=== PATIENT | female | born 1985 | race Caucasian/White ===

== ENCOUNTER 2018-01-20 13:18 | Observation (INO) ==
[2018-01-20 14:16] LABS: Amphetamine Screen,Urine Negative ng/mL (Cutoff=1000); Barbiturate Screen,Urine Negative ng/mL (Cutoff=200); Benzodiazepines Screen,Urine Negative ng/mL (Cutoff=200); Cannabinoid Screen,Urine Negative ng/mL (Cutoff = 50); Cocaine Screen,Urine Negative ng/mL (Cutoff= 300); Opiate Screen,Urine Negative ng/mL (Cutoff=300); Phencyclidine Screen,Urine Negative ng/mL (Cutoff=25)
[2018-01-20 15:32] LABS: Candida DNA Not Detected (Not Detect); Gardnerella DNA Not Detected (Not Detect); Trichomonas DNA Not Detected (Not Detect)
--- NOTE | 2018-01-20 15:51 | OB/GYN Progress Note ---
Date of Encounter: 01/20/18 Time of Encounter: 15:48 - Assessment and Plan (1) 37 weeks gestation of Current Visit: Yes Status: Acute (2) related nausea, antepartum Current Visit: Yes Status: Acute Patient states nausea somewhat better in triage Vaginosis panel all negative Discharge home with labor and when to return to triage precautions. Patient verbalizes understanding Subjective - Subjective Interval history: 37+4 weeks gestation presents to triage with complaints of nausea. Patient states she is been very nauseous today, but no vomiting and able to keep food and liquids down. Good movement, denies vaginal bleeding, contractions or leaking of fluid. Noted in chart patient was treated for trichomoniasis early in and has not had a test of cure, will obtain today Antepartum ROS: movement normal, no loss of fluid, no vaginal bleeding, no contractions Objective - Vital Signs Vital Signs: Intake and Output 01/19/18 01/20/18 01/20/18 23:59 07:59 15:59 Other: Weight 66.3 kg Patient Weight 01/20/18 23:59 Weight 66.3 kg - Exam FHR: auscultation normal Abdomen: Present: soft, gravid Cervical dilation: 1/high per RN
== END 2018-01-20 16:00 | disposition home or self-care (01) ==
LOC: 1NENULAB
PROVIDERS: ADMIT Advanced Practice Midwife; ATTEND Advanced Practice Midwife

== ENCOUNTER → 2018-01-29 14:37 | Observation (INO) ==
--- NOTE | 2018-01-29 14:22 | OB/GYN Progress Note ---
Date of Encounter: 01/29/18 Time of Encounter: 14:21 - Assessment and Plan (1) Uterine contractions Current Visit: Yes Status: Acute Cervix remains unchanged on serial cervical exams. Discharged home with labor and when to return to triage precautions. Patient verbalizes understanding and is in agreement with plan (2) 38 weeks gestation of Current Visit: No Status: Acute Subjective - Subjective Interval history: 38+6 weeks gestation presents to triage with complaints of contraction. Patient states she has been having contractions off and on on morning. Reports good movement, denies vaginal bleeding or leaking of fluid. Antepartum ROS: movement normal, contractions, no loss of fluid, no vaginal bleeding Objective - Vital Signs Vital Signs: Intake and Output 01/28/18 01/29/18 01/29/18 23:59 07:59 15:59 Other: Weight 67.222 kg Patient Weight 01/29/18 23:59 Weight 67.222 kg - Exam FHR: auscultation normal Abdomen: Present: soft, gravid Cervical dilation: 2 cm/unchanged from previous exams.
[~2018-01-29 14:37] MED LIST: Ringers Solution, Lactated 1,000 ML IVC SCH; Ringers Solution, Lactated 1,000 ML ONE
== END | disposition home or self-care (01) ==
LOC: 1NENULAB
PROVIDERS: ADMIT Obstetrics & Gynecology; ATTEND Obstetrics & Gynecology

== ENCOUNTER 2018-02-06 05:44 | Inpatient (IN) ==
[2018-02-06] MEDS ORDERED: Famotidine 20 MG/2 ML VIAL IVP PRN (06:34)
[2018-02-06] MEDS ORDERED: Ondansetron 4 MG/2 ML VIAL IVP PRN (06:34)
[2018-02-06] MEDS ORDERED: Naloxone 0.4 MG/ML INJ IVP PRN (06:34)
[2018-02-06] MEDS ORDERED: Ringers Solution, Lactated 1,000 ML IVC SCH (06:45)
--- NOTE | 2018-02-06 06:59 | OB/GYN History & Physical ---
Date of Encounter: 02/06/18 Time of Encounter: 06:55 Assessment and Plan (1) 40 weeks gestation of Current visit: Yes Status: Acute Admit to Labor and Delivery for induction of labor Pt does not want epidural or other pain control GBS Negative Augment with PO Cytotec Anticipate with vaginal delivery Antepartum Care with Dr. Brittaney Marcial is the OB elementary instructional coach History of Present Illness Chief complaint: Induction of Labor HPI: Ms. Ford is a 32 year old female who presents at 40 weeks 0 days for induction of labor. Endorses movement, but denies loss of clear fluid or vaginal bleeding. Notes irregular contractions to this point. States during her last , she rarely felt contractions. Denies blurry vision, headache, SOB, chest pain, nausea, dysuria. Denies smoking, alcohol, or drug use. care with Dr. Quispe. Labs: Blood Type: A-positive Rh Status: Negative GBS: Negative Hep B Surf Ag: Negative HIV Ab: Negative Treponema Ab: Negative G/C: Negative Varicella: Non-Immune Rubella: Non-Immune Urine Drug Screen: Negative Past Med Surg Social Fam HX - Past Medical History Attestation: Yes The following information was validated with the patient. Source: patient Medical history: no medical history Psychiatric history: no psych history - Past Surgical History Surgical History: no surgical history - Social History Smoking Status: Former smoker Smokeless Tobacco Status: No Alcohol use: none Drug use: none - Family History Mother Adopted: [place]: Anjana Ford Age: 59 Family Member Ethnicity: Non- Living Status: Still Living Hx Family Cardiac Disorders: No Hx Family Respiratory Disorders: No Hx Family Cancer: No Hx Family GI Disorders: No Hx Family Genitourinary Disorders: No Hx Family Endocrine Disorder: Yes Hx Family Musculoskeletal Disorders: No Hx Family Neuromuscular Disorders: No Hx Family Neurologic Disorders: No Hx Family HEENT Disorders: No Hx Family Autoimmune Disorders: No Hx Family Reproductive Disorders: No Hx Family Psychosocial Disorders: No Obstetrical History - Pregnancies : 2 Para: 1 Term: 1 : 0 Ab's: 0 Livin Medications and Allergies Vitamins 1 tab PO DAILY 01/20/18 [History] 3 Allergy/AdvReac Type Severity Reaction Status Date / Time pseudoephedrine Allergy Hives Verified 01/20/18 13:31 [From Sudafed] Review of System OB All systems PM: reviewed and no additional remarkable complaints except as stated Exam - Vital Signs Vital signs: Vital Signs Stable - Constitutional Constitutional: well developed, well nourished, no acute distress, average body habitus - HEENT HEENT: EOMI, Normocephaly - Neck Neck exam: full ROM - Lungs Respiratory exam: CTAB - Cardiovascular Cardiovascular exam: RRR, +S1, +S2 - Abdomen Abdomen: Present: bowel sounds normal, gravid, non tender - Extremities Extremities exam: full ROM, normal capillary refill, normal inspection, warm, radial pulses palpable and symmetrical Deep Tendon Reflex Grade: 2+ Normal Results Result Diagrams: 02/06/18 07:00 All other labs normal. - VTE Reasons for not Prescribing Prophylaxis: Treatment not Indicated - Low risk for VTE - Attending Attestation Roland Marcial MD , FACOG
[2018-02-06] MEDS: miSOPROStol 100 MCG TABLET PO SCH ×2 (07:25→14:30)
[2018-02-06 07:32] LABS: Basophils % 0.3 %; Eosinophils # 0.1 K/mcL (0.0-0.6); Eosinophils % 1.3 %; Hematocrit 35.2 % (35.3-44.9); Immature Granulocytes % 0.4 % (0-4); Lymphocytes % 19.6 %; Mean Corpuscular HGB Conc 34.1 g/dL (31.6-35.5); Mean Corpuscular Hemoglobin 29.7 pg (28.0-33.3); Mean Corpuscular Volume 87.1 fL (83.0-100.0); Mean Platelet Volume 11.8 fL (9.4-12.4); Monocytes # 0.8 K/mcL (0.0-1.3); Monocytes % 7.9 %; Neutrophils # 7.3 K/mcL (1.6-8.9); Platelet Count 217 K/mcL (140-400); Red Blood Count 4.04 M/mcL (3.82-4.97); Segmented Neutrophils % 70.5 %
[2018-02-06 07:49] LABS: Amphetamine Screen,Urine Negative ng/mL (Cutoff=1000); Barbiturate Screen,Urine Negative ng/mL (Cutoff=200)
[2018-02-06 07:50] LABS: Benzodiazepines Screen,Urine Negative ng/mL (Cutoff=300); Cannabinoid Screen,Urine Negative ng/mL (Cutoff = 50); Cocaine Screen,Urine Negative ng/mL (Cutoff= 300); Opiate Screen,Urine Negative ng/mL (Cutoff=300); Phencyclidine Screen,Urine Negative ng/mL (Cutoff=25)
--- NOTE | 2018-02-06 12:28 | OB Labor Progress Note ---
Date of Encounter: 02/06/18 Time of Encounter: 12:26 Labor Progress Note - Subjective Subjective: Pt mildly uncomfortable with contractions - Cervix Cervix: 1/70/-2 - Heart Tones Heart Tones: FHR Category I - [place]: Contractions q 3-5 minutes - Interventions Interventions: Patterson bulb placed and inflated with 30 ml - Plan Plan: Continue induction management Monitor patterson bulb for release Anticipate
--- NOTE | 2018-02-06 18:02 | OB Labor Progress Note ---
Date of Encounter: 02/06/18 Time of Encounter: 16:10 Labor Progress Note - Subjective Subjective: Patient remains comfortable with contractions - Cervix Cervix: 3/70/-2 - Heart Tones Heart Tones: FHR category I - [place]: Contractions every 3-5 minutes - Interventions Interventions: SVE AROM-clear fluid moderate amount IUPC FSE - Plan Plan: Continue induction management Frequent position changes Anticipate
--- NOTE | 2018-02-06 18:15 | OB Labor Progress Note ---
Date of Encounter: 02/06/18 Time of Encounter: 18:13 Labor Progress Note - Subjective Subjective: Patient reports she is feeling more pressure with contractions - Cervix Cervix: 5/80/-1 - Heart Tones Heart Tones: FHR category I - [place]: Contractions every 2-5 minutes - Interventions Interventions: SVE - Plan Plan: Continue induction management Frequent position changes Anticipate
[2018-02-06] MEDS ORDERED: Oxytocin 20 units/ LR 1000 mL 20 UNIT/1,000 ML BAG IVC SCH (19:30)
--- NOTE | 2018-02-07 01:32 | OB/GYN Procedure Note ---
Delivery - Delivery Date: 02/07/18 Provider: Gale Casas Intrapartum events: meconium Delivery induction: patterson, misoprostol Delivery augmentation: rupture of membranes, pitocin Delivery monitor: external FHT, external uterine, internal FHT, internal uterine Anesthesia: epidural Quantitated Blood Loss: 150 - (s) A Delivery Date: 02/07/18 Infant Delivery Time: 00:52 Presentation: vertex Position: OA Route of delivery: Gender: Male Viability: Viable Pounds: 8 Ounces: 1 Weight Gram: 3.67 kg at 1 minute: 8 at 5 mins: 9 Shoulder Dystocia: not encountered Placenta: spontaneous Cord: 3 umbilical vessels - Repair Episiotomy: none Laceration Description: Periurethral (bilateral hemostatic), Superficial - Complications Delivery complications: none Delivery comments: This is a 32-year-old G2 now P2 who is admitted for elective induction of labor. She progressed with misoprostol, Patterson bulb, AROM, and Pitocin augmentation to the second stage of labor. She pushed for about 30 minutes. She delivered a viable female infant "MILAGROS Thomas over an intact perineum. The was placed on the maternal abdomen where she transitioned spontaneously. The umbilical cord was double clamped by inventory representative and cut by FOB after pulsations had ceased. No nuchal cord was identified. No shoulder dystocia was encountered. scores were 8 at 1 minute and 9 at 5 minutes. The weighed 8 lbs. 1 oz. (3670 g). The placenta delivered (Dash) spontaneously, intact, with a three-vessel cord. Inspection revealed no perineal, sidewall or cervical lacerations. There was a small separation of skin that was repaired with a single stitch with 4-0 Monocryl. The uterus was firm with no active bleeding. The repair was done without anesthesia. EBL was 150 mL. Placenta and umbilical artery blood gases were not sent. There were no complications during the procedure. Mom and baby are skin to skin following delivery. - Disposition Mom disposition: stable in LDR [place] disposition: stable in LDR
[2018-02-07] MEDS ORDERED: Methylergonovine 0.2 MG/ML AMPUL IM ONE ×2 (02:21→02:32)
[2018-02-07] MEDS ORDERED: Acetaminophen 325 MG TABLET PO PRN (03:18)
[2018-02-07] MEDS ORDERED: Oxytocin 20 units/ LR 1000 mL 20 UNIT/1,000 ML BAG IVC SCH (03:18)
[2018-02-07] MEDS ORDERED: Benzocaine/Menthol 56 GM AEROSOL SPRAY TP PRN (03:18)
[2018-02-07] MEDS: Ibuprofen 600 MG TABLET PO PRN (09:43)
[2018-02-07] MEDS: Prenatal Vit/FA 1 EACH TABLET PO SCH (09:44)
[2018-02-08 08:13] VITALS: BP 114/75
[2018-02-08] MEDS: Prenatal Vit/FA 1 EACH TABLET PO SCH (09:15)
[2018-02-08] MEDS: Ibuprofen 600 MG TABLET PO PRN (09:15)
--- NOTE | 2018-02-08 10:17 | Discharge Summary ---
Date of Encounter: 02/08/18 Time of Encounter: 10:14 - Discharge Diagnosis (1) Normal spontaneous vaginal delivery Priority: Primary Status: Acute Comments: Pt seen and examined at bedside; mother and baby resting comfortably Pain well controlled with Motrin Notes mild lochia Ambulating without difficulty Normal appetite Yet to have bowel movement or pass flatus; evidence of bowel sounds Voiding appropriately Plans to feed with formula Will discuss control at follow up with Dr. Quispe Counseled on signs and symptoms of depression Plan to discharge home today - Discharge Medications Prescriptions: Ibuprofen [Motrin] 600 mg PO Q6HR PRN 14 Days #56 tablet PRN Reason: Cramping Docusate [Colace] 100 mg PO BID 14 Days #28 capsule Ferrous Sulfate 325 mg PO DAILY 30 Days #30 tablet Home Medications: Vitamins 1 tab PO DAILY 01/20/18 [History] Docusate [Colace] 100 mg PO BID 14 Days #28 capsule 02/08/18 [Rx] Ferrous Sulfate 325 mg PO DAILY 30 Days #30 tablet 02/08/18 [Rx] Ibuprofen [Motrin] 600 mg PO Q6HR PRN 14 Days #56 tablet 02/08/18 [Rx] Allergies/Adverse Reactions: 3 Allergy/AdvReac Type Severity Reaction Status Date / Time pseudoephedrine Allergy Hives Verified 01/20/18 13:31 [From [facility]] Data Procedures and tests throughout hospitalization: Laboratory Tests 02/06/18 02/06/18 07:00 07:00 WBC 10.3 RBC 4.04 Hgb 12.0 Hct 35.2 L MCV 87.1 MCH 29.7 MCHC 34.1 RDW 14.0 Plt Count 217 MPV 11.8 Immature Gran % 0.4 Seg Neutrophils % 70.5 Lymphocytes % 19.6 Monocytes % 7.9 Eosinophils % 1.3 Basophils % 0.3 Neutrophils # 7.3 Lymphocytes # 2.0 Monocytes # 0.8 Eosinophils # 0.1 Basophils # 0.0 Urine Opiates Screen Negative Ur Barbiturates Screen Negative Ur Phencyclidine Scrn Negative Ur Amphetamines Screen Negative U Benzodiazepines Scrn Negative Urine Cocaine Screen Negative U Marijuana (THC) Screen Negative Ur Drug Screen Interp See Below Date of admission: 02/06/18 05:44 Primary care physician: PCP NONE Consults: 02/07/18 03:18 Consult to Tucking Machine Operator [CONS] Routine Comment: Vaginal delivery, consult needed Discharging clinician: Kady Adams Anticipated date of discharge: 02/08/18 - Patient Status Disposition: Home, Self-Care Condition: Good Functional capacity at discharge: independent ambulation Overall status at discharge: patient is progressing back to baseline - Discharge Instructions Follow Up With: NONE,PCP [Primary Care Provider] - Ashley Lopez [Family Provider] - Jericho Quispe DO [Partnered Physician] - - Diet and Activity Activity: resume usual activities as tolerated Diet: advance to your usual diet Hospital Course Reason for admission: induction of labor Delivery: Episiotomy: none Laceration: none Other procedures: none complications: none Discharge diagnosis: IUP at term delivered baby: male Hospital course: 32 y/o at 40 weeks 0 days gestational age presents for induction of labor. Pt had care with Dr. Quispe. Labor was augmented with patterson balloon, Misoprostol, Pitocin, and AROM. Pt delivered male at 8lbs 1oz, with apgars 8/9. Pt sustained no lacerations during delivery. Mother and baby transferred to and resting comfortably. Plan to discharge home today. Time Attestation: Total time spent providing and/or coordinating discharge services: Time Spent: Less than 30 minutes Exam - Constitutional Vitals: Temp Pulse Resp BP Pulse Ox 97.8 F 86 16 114/75 98 02/08/18 07:40 02/08/18 07:40 02/08/18 07:40 02/08/18 07:40 02/07/18 19:55 General appearance IM: cooperative, A&O X 3, pleasant, no acute distress, answers questions appropriately - Respiratory Respiratory exam: Present: CTAB - Cardiovascular Cardiovascular exam IM: Present: RRR, +S1, +S2 - GI/Abdominal GI/Abdominal exam IM: normal bowel sounds, soft, no peritoneal signs - Uterine Tone: Firm Uterus Position: At Umbilicus - Extremities Exam Extremities exam IM: Present: full ROM, normal capillary refill, normal inspection, warm, radial pulses palpable and symmetrical - Neurological Exam Neurological exam: alert, CN II-XII intact, oriented X3 - Psychiatric Additional comments: Normal Mood and Affect - Other Additional findings: I examined this patient and my medical decision-making was reviewed with the Resident Physician. I agree with the documented findings, disposition and treatment plan as described except to the extent set forth below. HEBERT Silva
== END 2018-02-08 13:00 | disposition home or self-care (01) | DRG 560 ==
LOC: 1NENULAB 05:44 → 1NENUOBS 02-07 03:17
PROVIDERS: ADMIT Advanced Practice Midwife; ATTEND Advanced Practice Midwife